=== PATIENT | male | born 1950 | race Caucasian/White ===

== ENCOUNTER 2017-06-25 13:32 | Day surgery (SDC) | payer MEDICARE, OTHER ==
[2017-06-25] MEDS ORDERED: IOHEXOL 300 MG/ML 50 ML BTL (for RAD DIAG) OTHER ONE (13:33)
[2017-06-25 13:54] VITALS: BP 156/93; PULSE 59; RESP 20; TEMP 98.5; O2SAT 99
[2017-06-25] MEDS ORDERED: CLON.5 PO (14:05)
[2017-06-25] MEDS ORDERED: OMEP20TA PO (14:05)
[2017-06-25] MEDS ORDERED: IBUP-232 PO (14:05)
[2017-06-25] MEDS ORDERED: ROPIVACAINE 1% PF INJ 20 ML AMP ONE (14:29)
[2017-06-25] MEDS ORDERED: TRIAMCINOLONE ACETONIDE 40 MG/ML VIAL ONE (14:29)
--- NOTE | 2017-06-25 14:48 | PD.RAD ---
Post Procedure Progress Note Pre Procedure Diagnosis: (1) Herniation of lumbar intervertebral disc with radiculopathy Post Procedure Diagnosis: (1) Herniation of lumbar intervertebral disc with radiculopathy Procedure Date: Jun 25, 2017 Supervising Radiologist: Bruno Connolly JR Proceduralist/Assist: Rachele Garcia RT(R)(), Rocio Burt RT(R)() Anesthesia: Local Plan of Activity Patient to Unit: ROPU Patient Condition: Good See PACS Report for procedural detail/treatment Spinal Procedure Nerve Root Injection L4 Findings: Right L4 radiculopathy with herniated disc on MRI. Successful right L4 NRI. Jr. Mohsen,Bruno Matthews MD Jun 25, 2017 14:48
[2017-06-25 14:50] VITALS: BP 147/76; PULSE 60; RESP 20; TEMP 98.5; O2SAT 96
--- NOTE | 2017-06-25 15:54 | RADRPT ---
EXAM DATE/TIME: 06/25/2017 14:36 [facility] COMPARISON: No previous studies available for comparison. INDICATIONS : Patient with a history of lower back pain with radiculopathy. MEDICAL HISTORY : Herniated disc SURGICAL HISTORY : None ENCOUNTER: Initial ACUITY: 1 month PAIN SCORE: 7/10 LOCATION: Right Leg FLUORO TIME: 1.0 minutes IMAGE SERIES: 1 CONTRAST: 1 cc Omnipaque (iohexol) 300 ACCESS LEVEL: Right L4 MEDICATIONS: 1.) 1 cc Lidocaine IA 2.) 40 mg triamcinolone (Kenalog) IA 3.) 1 cc ropivicaine (Naropin) IA RESPONSE: Pre procedure pain level was 7/10. Post procedure pain level was 5/10. PROCEDURE : 1. Fluoroscopically guided nerve root injection. I reviewed the patient's outpatient MRI of the lumbar spine. This reveals right L4 neural foraminal i mpingement. In discussing with the patient his clinical symptoms this coincides with the L4 distribut ion. The risks, benefits and alternatives to the procedure were explained and verbal and written cons ent was obtained. The site was prepped in sterile fashion. Full sterile technique was used, includi ng cap, mask, sterile gloves and gown and a large sterile sheet. Hand hygiene and 2% chlorhexidine a nd/or betadine/alcohol prep was utilized per protocol for cutaneous antisepsis. The skin and subcuta neous tissues were infiltrated with local anesthetic solution. With fluoroscopic guidance the right L4 nerve root was localized and positive contrast was injected t o confirm epidural spread. The patient had discomfort along the distribution during the injection lenora t was in the same location as is pain at home. Following this the prescribed medication was injected surrounding the nerve root sleeve. The patient's preprocedure pain and post procedure pain levels we re recorded. CONCLUSION: Uncomplicated fluoroscopically guided right L4 nerve root injection as above. Bruno Connolly Jr., MD on June 25, 2017 at 15:49 Board Certified Radiologist. This report was verified electronically.
== END 2017-06-25 15:15 | disposition home or self-care (01) ==
LOC: HROP 13:32 → HRIP 13:34 → HROP 15:15
PROVIDERS: ATTEND Orthopaedic Surgery Sports Medicine
DX: M51.16 Intervertebral disc disorders with radiculopathy, lumbar region (principal)
CPT/HCPCS: 64483; 77003; J2795; J3301; Q9967

== ENCOUNTER → 2017-07-09 | Outpatient (CLI) | payer MEDICARE, BC ==
[~2017-07-09] MED LIST: CLON.5 PO; GABA100C4 PO; HYDR-3516 PO; IBUP-232 PO; OMEP20TA93 PO; TYLE325T PO; WALKER WHEELS/F1 MIS
[2017-07-09 13:02] LABS: BASOPHIL % 0.4 % (0.0-2.0); EOSINOPHIL # 0.1 TH/MM3 (0-0.4); EOSINOPHIL % 1.2 % (0.0-4.0); LYMPHOCYTE # 2.4 TH/MM3 (1.0-4.8); MEAN CELL VOLUME 90.2 FL (80.0-100.0); MEAN CORPUSCULAR HEMOGLOBIN 30.1 PG (27.0-34.0); MEAN CORPUSCULAR HGB CONC 33.3 % (32.0-36.0); MONO % 8.7 % (0.0-8.0); NEUT % 68.7 % (16.0-70.0); PLATELET COUNT 224 TH/MM3 (150-450); RED BLOOD COUNT 5.21 MIL/MM3 (4.50-5.90); RED CELL DISTRIBUTION WIDTH 13.9 % (11.6-17.2); WHITE BLOOD COUNT 11.6 TH/MM3 (4.0-11.0)
[2017-07-09 13:03] LABS: HEMO FLAGS AUTO DIFF
[2017-07-09 13:13] LABS: INTERNATIONAL NORMALIZED RATIO 0.9 RATIO; PROTHROMBIN TIME - PATIENT 10.1 SEC (9.8-11.6)
[2017-07-09 13:33] LABS: BICARBONATE 29.5 MEQ/L (21.0-32.0); POTASSIUM 4.7 MEQ/L (3.5-5.1)
[2017-07-09 13:44] LABS: BANDS 2 % (0-6); EOSINOPHILS 2 % (0-4); METAMYELOCYTES 1 % (0-1); MYELOCYTES 2 % (0-0); NEUTROPHIL # MANUAL DIFF 8.8 TH/MM3 (1.8-7.7); PLATELET ESTIMATE SMEAR NORMAL (NORMAL); PLATELET MORPHOLOGY NORMAL (NORMAL); POLYS (SEG NEUTROPHILS) 71 % (16-70); WBC DIFF SAMPLE 100
[2017-07-09 13:45] LABS: SCAN/DIFF FINAL DIFF MANUAL
--- NOTE | 2017-07-12 19:07 | EKG ---
Date Performed: 07/09/2017 Time Performed: 12:57:31 PTAGE: 67 years EKG: Sinus rhythm WITH OCCASIONAL SUPRAVENTRICULAR PREMATURE COMPLEXES MINIMAL VOLTAGE CRITERIA FOR LVH, CONSIDER NORM AL VARIANT SEPTAL MYOCARDIAL INFARCTION, OF INDETERMINATE AGE ABNORMAL ECG NO PREVIOUS TRACING DOCTOR: Malcom Michaels Interpretating Date/Time 07/12/2017 19:05:24
== END ==
LOC: CPRE 12:33
PROVIDERS: ATTEND Orthopaedic Surgery Orthopaedic Surgery of the Spine
DX: Z01.812 Encounter for preprocedural laboratory examination (principal); Z01.810 Encounter for preprocedural cardiovascular examination; M51.26 Other intervertebral disc displacement, lumbar region; Z79.01 Long term (current) use of anticoagulants; R94.31 Abnormal electrocardiogram [ECG] [EKG]
CPT/HCPCS: 36415; 80048; 85007; 85027; 85610; 85730; 93005

== ENCOUNTER 2017-07-13 09:33 | Observation (INO) | payer MEDICARE, BC ==
[~2017-07-13] VITALS: Ht 185.4 cm; Wt 74.2 kg
[~2017-07-13 09:33] MED LIST changes: -HYDR-3516 PO; -WALKER WHEELS/F1 MIS
[2017-07-13] MEDS: LACTATED RINGER'S 1000 ML IV PRN ×2 (10:00→20:00)
[2017-07-13] MEDS ORDERED: CHLORHEXIDINE GLUCONATE 2 % 1 PACK (2 CLOTHS) TOPICAL PRN (10:45)
[2017-07-13] MEDS ORDERED: POVIDONE IODINE 7.5% SCRUB 118 ML BOTTLE TOPICAL SCH (10:45)
[2017-07-13] MEDS ORDERED: POVIDONE IODINE 5% (ANTISEPSIS KIT) 4 APPLICATIONS EACH NARE PRN (10:45)
[2017-07-13] MEDS ORDERED: METOPROLOL TARTRATE 25 MG TAB PO PRN (10:45)
[2017-07-13] MEDS ORDERED: SODIUM CHLORID 0.9% 500 ML IV PRN (10:45)
[2017-07-13] MEDS ORDERED: INSULIN HUMAN REGULAR 1,000 UNITS/10 ML VIAL SQ PRN (10:45)
[2017-07-13] MEDS ORDERED: LIDOCAINE HCL 1% PF 5 ML AMPULE OTHER ONE (12:00)
[2017-07-13] MEDS ORDERED: MIDAZOLAM HCL 2 MG/2 ML VIAL IV ONE (12:00)
[2017-07-13] MEDS ORDERED: NEOSTIGMINE 3 MG/3 ML SYR IV ONE (12:00)
[2017-07-13] MEDS ORDERED: DEXAMETHASONE SOD PHOS 4 MG/ML VIAL IV ONE (12:00)
[2017-07-13] MEDS ORDERED: ePHEDrine/NS 25 MG/5 ML SYR IV ONE (12:00)
[2017-07-13] MEDS ORDERED: PROPOFOL 200 MG/20 ML AMP IV ONE (12:00)
[2017-07-13] MEDS ORDERED: LACTATED RINGER'S 1000 ML INJ 1,000 ML IV ONE (12:00)
[2017-07-13] MEDS ORDERED: MORPHINE SULFATE 4 MG/ML INJ IV ONE (12:00)
[2017-07-13] MEDS ORDERED: ROCURONIUM INJ 50 MG/5 ML SYRINGE IV PUSH ONE (12:00)
[2017-07-13] MEDS ORDERED: GLYCOPYRROLATE 1 MG/5 ML SYRINGE IV PUSH ONE (12:00)
[2017-07-13] MEDS ORDERED: ONDANSETRON HCL 4 MG/2 ML VIAL IV PUSH ONE (12:00)
[2017-07-13] MEDS ORDERED: BETAMETHASONE SOD PHOS/ACETATE SUSP 30 MG/5 ML VIAL ONE (12:51)
[2017-07-13] MEDS ORDERED: GELATIN 12 MM/7 MM FOAM ONE (12:51)
[2017-07-13] MEDS ORDERED: BUPIVACAINE/EPINEPHRINE 0.25% PF 30 ML VIAL ONE (12:52)
[2017-07-13] MEDS ORDERED: GENTAMICIN SULFATE 80 MG/2 ML VIAL ONE (12:52)
[2017-07-13] MEDS: ceFAZolin 2 GM PREMIX 50 ML IV SCH ×2 (13:41→20:00)
--- NOTE | 2017-07-13 16:07 | HHI.PR ---
cc: Cristal Cardoza MD Immediate Post Op Note Procedure Date: Jul 13, 2017 Pre Op Diagnosis: L4-L5 right far lateral disc herniation with radiculopathy Post Op Diagnosis: same Surgeon: Cristal Cardoza Cellar Packer(s): Eagle Canales Procedure: Right far lateral L4-L5 exposure with discectomy Complications: none Estimated blood loss: 50cc Anesthesia: General Drains: None Patient to: PACU Patient Condition: Good Date/Time of Procedure: SEE SURGICAL CARE RECORD Cristal Cardoza MD Jul 13, 2017 16:07
[2017-07-13] MEDS ORDERED: DO NOT ADM ANY ANTICOAGULANT DRUGS PRN (16:14)
[2017-07-13] MEDS ORDERED: Post-op Orders (for Pharmacy) MISC XX ONE (16:15)
[2017-07-13] MEDS ORDERED: MORPHINE SULFATE 4 MG/ML INJ IV PUSH PRN (16:15)
[2017-07-13] MEDS ORDERED: ACETAMINOPHEN 1000 MG/100 ML 100 ML IV ONE (16:15)
[2017-07-13] MEDS ORDERED: KETOROLAC TROMETHAMINE 60 MG/2 ML (IM) VIAL IM ONE (16:15)
[2017-07-13] MEDS ORDERED: SODIUM CHLORIDE 0.9% FLUSH 10 ML FLUSH IV FLUSH PRN (16:15)
[2017-07-13] MEDS ORDERED: ONDANSETRON HCL 4 MG/2 ML VIAL IV PUSH PRN (16:15)
[2017-07-13] MEDS ORDERED: HYDR-3516 PO (16:16)
[2017-07-13] MEDS ORDERED: *HYDROmorphone PF 1 MG VIAL PERIprocedural Use ONLY ONE (16:17)
[2017-07-13] MEDS ORDERED: *ONDANSETRON 4 MG VIAL PERIprocedural Use ONLY ONE (16:25)
--- NOTE | 2017-07-13 16:49 | RADRPT ---
EXAM DATE/TIME: 07/13/2017 14:08 [facility] COMPARISON: No previous studies available for comparison. INDICATIONS : Needle location for L4-L5 resection HNP. MEDICAL HISTORY : Herniated disc. SURGICAL HISTORY : None. ENCOUNTER: Initial ACUITY: 1 day PAIN SCORE: Non-responsive. LOCATION: Lumbar spine. FINDINGS: Single lateral spot fluoroscopic image obtained in the operating room during a procedure demonstrates a measurement overlying the posterior elements at L4-L5. CONCLUSION: Instruments overlie the posterior elements at L4-L5. Stuart Bryan MD on July 13, 2017 at 16:47 Board Certified Radiologist. This report was verified electronically.
[2017-07-13] MEDS ORDERED: PROMETHAZINE INJ 25 MG/ML VIAL ONE (17:37)
[2017-07-13] MEDS: ACETAMINOPHEN/HYDROcodone 325 MG/5 MG TAB PO PRN ×2 (18:30→21:50)
[2017-07-13 20:00] VITALS: BP 117/75; PULSE 71; RESP 18; TEMP 97.4; O2SAT 100
[2017-07-13] MEDS: SODIUM CHLORIDE 0.9% FLUSH 10 ML FLUSH IV FLUSH SCH (21:00)
[2017-07-14] VITALS: BP 116/71; PULSE 75; RESP 20; TEMP 97.7; O2SAT 97
[2017-07-14 04:00] VITALS: BP_SYST 103; BP_SYST 146; BP_DIAS 58; BP_DIAS 77; PULSE 75; PULSE 80; RESP 18; RESP 20; TEMP 97.2; O2SAT 98; O2SAT 99
[2017-07-14] MEDS: ACETAMINOPHEN/HYDROcodone 325 MG/5 MG TAB PO PRN ×2 (05:01→10:47)
--- NOTE | 2017-07-14 07:51 | PD.ORT.PN ---
Subjective Subjective Remarks Patient states pain significantly improved since preop. His right leg symptoms are significantly decreased and he only occasionally gets a shooting pain down the right leg. He does report mild to moderate back pain at the surgical site. denies nausea and vomiting this morning Objective Vitals Vital Signs Date Time Temp Pulse Resp B/P (MAP) Pulse Ox O2 Delivery O2 Flow Rate FiO2 07/14/17 04:00 97.2 75 20 146/77 (100) 99 07/14/17 00:00 97.7 75 20 116/71 (86) 97 07/13/17 20:00 97.4 71 18 117/75 (89) 100 07/13/17 18:15 98.0 78 20 115/65 (82) 98 Room Air 07/13/17 17:15 97.9 70 16 121/79 (93) 100 Room Air 07/13/17 17:12 98.0 69 17 134/74 (94) 95 Room Air 07/13/17 17:00 70 16 128/71 (90) 95 Room Air 07/13/17 16:45 69 17 129/67 (87) 100 Nasal Cannula 1 07/13/17 16:30 68 17 91/55 (67) 99 Nasal Cannula 2 07/13/17 16:15 97.9 72 17 99/52 (68) 99 Nasal Cannula 3 07/13/17 10:14 98.4 83 18 133/71 (91) 98 I/O 07/13/17 07/13/17 07/13/17 07/14/17 07/14/17 07/14/17 07:00 15:00 23:00 07:00 15:00 23:00 Intake Total 1200 ml Output Total 50 ml Balance 1150 ml Other 1200 ml Output Estimated Blood Loss 50 ml # Voids 1 2 # Bowel Movements 0 0 Objective Remarks awake, alert, no acute distress Bilateral lower extremity: 5 out of 5 strength throughout quadriceps hamstrings , gastrocs, tib ant, EHL, FHL. Sensation intact. Dorsalis pedis pulses palpable. Assessment & Plan Assessment and Plan Patient is a 67 show gentleman who is now postop day 1 status post right-sided L4-5 far lateral discectomy, doing well 1. Pain is relatively well controlled. We'll continue hydrocodone when necessary upon discharge. Recommended patient also continue his gabapentin at home. 2. Discussed with the patient that he should avoid heavy lifting, bending or twisting. Patient should avoid prolonged sitting. Of greater than 20-30 minutes. 3. Patient should keep dressing in place for approximately 1 week. Should the dressing become saturated I did discuss that he can change the dressing. I do want him to keep the incision dry until he follows up in approximately 2 weeks as scheduled. 4. Patient should be discharged home this morning Cristal Cardoza MD Jul 14, 2017 07:51
--- NOTE | 2017-07-14 07:54 | HHI.DS ---
Discharge Summary Admission Date Jul 13, 2017 at 19:46 Discharge Date: Jul 14, 2017 Admitting Diagnosis right L4-5 far lateral disc herniation with radiculopathy Diagnosis: (1) Herniation of lumbar intervertebral disc with radiculopathy Diagnosis: Principal ICD Codes: M51.16 - Intervertebral disc disorders with radiculopathy, lumbar region Status: Acute Brief History This is a 67 year old male patient we will have right leg radiculopathy that was refractory to nonoperative management with an L4-L5 right-sided far lateral disc herniation. Patient was offered operative management in the form of right- sided far lateral discectomy. Risks, benefits, alternatives were discussed with the patient and he elected to proceed with surgery. PE at Discharge awake, alert, no acute distress Bilateral lower extremity: 5 out of 5 strength throughout quadriceps hamstrings , gastrocs, tib ant, EHL, FHL. Sensation intact. Dorsalis pedis pulses palpable. Hospital Course Patient underwent a right-sided L4-5 discectomy with plan for discharge from PACU, however, patient was having significant amount of nausea and did not feel like he was capable of going home. Patient was kept overnight for observation. Patient was gradually transitioned to a regular diet and had pain controlled with oral medications. His nausea and vomiting resolved. He was able to mobilize independently with minimal discomfort. Patient was then discharged home Pt Condition on Discharge: Good Discharge Disposition: Discharge Home Discharge Instructions Diet Instructions: As Tolerated, No Restrictions Activities You Can Perform: Regular-No Restrictions Additional Activity Instruc.: No heavy lifting, bending or twisting. Avoid sitting for more than 30 minutes. Cristal Cardoza MD Jul 14, 2017 07:54
[2017-07-14] MEDS: SODIUM CHLORIDE 0.9% FLUSH 10 ML FLUSH IV FLUSH SCH (08:23)
[2017-07-14] MEDS ORDERED: WALKER WHEELS/F1 MIS (08:40)
[2017-07-14] MEDS ORDERED: DOCUSATE SODIUM 100 MG CAP PO SCH (21:00)
--- NOTE | 2017-07-26 14:04 | PD.OP ---
cc: Cristal Cardoza MD Operative Report Preoperative Diagnosis: (1) Herniation of lumbar intervertebral disc with radiculopathy Postoperative Diagnosis: same Procedure: Right sided L4-5 far lateral dissection with discectomy Surgeon: Cristal Cardoza Side Trimmer(s): none Operation and Findings: Anesthesia: General EBL: 50 mL Complications: None specimens: None Indications for procedure: Patient is a 67-year-old gentleman with almost 2 months of back and principally right leg pain. Patient is found to have a far lateral L4-5 disc herniation causing nerve root impingement. Patient did have some mild improvement with injection and therefore was thought to be a good candidate for discectomy. Risks, benefits and alternatives were discussed with the patient. Risks including but not limited to infection, recurrent disc herniation, nerve injury resulting in weakness and/or paralysis, possible CSF leak, adjacent segment disease, persistent or worsening leg pain and back pain, and other unforeseen complications. Patient did consent to a right-sided L4-5 far lateral dissection with discectomy. Description of procedure: Patient was brought back to the operating room where general anesthesia then ensued. Patient was then placed prone on the operating room table with all bony prominences well padded. Patient was prepped and draped in standard sterile fashion. Patient received preoperative antibiotics. A timeout was performed to identify the correct patient, site, side and procedure to be performed. Fluoroscopy was used to identify the L4-5 level on the right side to make a paramedian incision. A small approximately 1 inch incision was made approximately 2-1/2-3 cm lateral to midline on the right side between the L4 and L5 levels. The skin and subcutaneous tissue and fascia were incised. Blunt finger dissection was used to sign the muscle interval down to the transverse process of L4 and L5. The retractor was then placed over the dilating tube and docked laterally on the transverse processes and more medially over the facet. The L5 transverse process was cleared and dissection was carried along the most superior aspect of the transverse processes medially towards the L4-5 facet joint. The intertransverse ligament was incised to allow access into the foramen and far lateral space. Some mild bleeding was encountered and hemostasis was achieved with electrocautery and hemostatic agents. As the intertransverse ligament was mobilized more cranially, the L4 exiting nerve root was encountered as it was being compressed against the ligament by the disc fragment in the foramen. This was gently retracted laterally, to allow access to the large foraminal disc herniation. The annulus was incised and the disc herniation removed in a piecemeal fashion. At this point, the exiting right L4 nerve root did appear decompressed and a Gurdeep instrument along with a nerve root retractor were passed along the path of the L4 nerve root to ensure it was adequately decompressed as it moved more centrally and then further out laterally past the foramen. The nerve root was found to be free of compression. The area and disc space was thoroughly irrigated to ensure there were no loose fragments remaining. Hemostasis was achieved. A small piece of Gelfoam soaked in Celestone was then placed over the exposed nerve root to allow for elution of steroid over the next several days. The fascia was then closed with interrupted Vicryl sutures. The subcutaneous tissue was then closed with interrupted Vicryl sutures and subcuticular Monocryl. Mastisol and Steri-Strips were then placed along with sterile dressings. The patient was then returned to the stretcher supine. Patient was awoken from general anesthesia without complication. Disposition: Patient was instructed to limit his bending, twisting and lifting to greater than 10 pounds. Patient was instructed to limit his sitting duration to less than 30 minutes per session. Cristal Cardoza MD Jul 26, 2017 14:04
== END 2017-07-14 12:08 | disposition home or self-care (01) ==
LOC: HSDC 09:33 → N05A 19:46
PROVIDERS: ADMIT Orthopaedic Surgery Orthopaedic Surgery of the Spine; ATTEND Orthopaedic Surgery Orthopaedic Surgery of the Spine
DX: M51.16 Intervertebral disc disorders with radiculopathy, lumbar region (principal); M54.5 Low back pain; M54.2 Cervicalgia; M79.604 Pain in right leg
CPT/HCPCS: 00630; 63030; 72020; 76000; 94150; G0378; J0131; J0690; J0702; J1100; J1170; J1580; J1885; J2250; J2270; J2405; J2550; J2710; J3010; J7120